=== PATIENT | female | born 1965 | race Caucasian/White ===

== ENCOUNTER 2019-10-29 15:31 | Emergency (ER) | payer BC, SELFPAY ==
--- NOTE | ~2019-10-29 | CT_ITS ---
EXAMINATION: CT abdomen pelvis wo con DATE: 10/29/2019 18:30 INDICATION: Left flank pain TECHNIQUE: Computed tomography (CT) of the abdomen and pelvis was performed without intravenous contr ast. The dose-length product was 841.20 mGy-cm. Automated exposure control and iterative reconstruction technique were employed. COMPARISON: CT dated 02/24/2007 FINDINGS: Lung bases are unremarkable. Heart size normal. No significant pleural or pericardial effus ion. No significant vascular abnormality. No lymphadenopathy. The liver, spleen, pancreas, adrenal glands and right kidney are unremarkable. There is a proximal ri ght ureteral/UVJ stone measuring 4 mm with mild hydronephrosis. Nonobstructive bowel gas pattern. The re are tubal ligation clips. No free air or free fluid. Mild osteoarthritis of the hips. IMPRESSION: 1. 4 mm proximal left ureteral/UPJ stone with mild hydronephrosis. Reviewed, dictated and finalized at location A.
--- NOTE | ~2019-10-29 | XR_ITS ---
XR abdomen/kub 1V 10/29/2019 18:39 Indication: Left flank pain Procedure: KUB Comparison: CT dated 10/29/2019 Findings: There is a 3-4 mm left UPJ stone at the L2 level. Bowel gas pattern nonobstructive. Interva l removal of right internal ureteral stent. There are tubal ligation rings in the pelvis. Impression: 1: Left UPJ stone measuring 3-4 mm. Reviewed, dictated and finalized at location A. Impression: 1: Left UPJ stone measuring 3-4 mm.
[2019-10-29 15:32] VITALS: BP 144/86; PULSE 79; RESP 16; TEMP 36.5; O2SAT 100
[2019-10-29 15:46] LABS: Basophils Absolute Auto 0.1 K/mm3 (0.0-0.1); Basophils Percent Auto 0.8 % (0.2-1.2); Eosinophils Absolute Auto 0.4 K/mm3 (0-0.3); Eosinophils Percent Auto 6.9 % (0-4.4); Hematocrit 43.7 % (37.0-47.0); Hemoglobin 14.4 g/dL (12.0-15.0); Immature Granulocyte Absolute 0.01 K/mm3 (0.00-0.031); Immature Granulocyte Percent A 0.2 % (0-0.5); Lymphocytes Absolute Auto 1.81 K/mm3 (0.9-3.2); Lymphocytes Percent Auto 29.1 % (18.3-44.2); Mean Platelet Volume 9.7 fl (7.4-10.4); Monocytes Absolute Auto 0.6 K/mm3 (0.1-0.6); Monocytes Percent Auto 10.3 % (2.6-8.5); Neutrophils Absolute Auto 3.3 K/mm3 (1.3-6.7); Neutrophils Percent Auto 52.7 % (45.5-73.1); Platelet Count Result 321 k/mm3 (150-375); Red Cell Distribution Width 12.5 % (11.5-14.5); White Blood Count 6.2 K/mm3 (4.5-10.0)
[2019-10-29 15:55] LABS: Blood Urea Nitrogen 14 mg/dL (7-17); Calcium 9.4 mg/dL (8.4-10.2); Carbon Dioxide 26 mmol/L (22-30); Chloride 101 mmol/L (98-107); Estimated CRCL calculation 119 ml/min; Estimated Glomerular Filt Rate > 60; Glucose 198 mg/dL (65-105); Potassium 3.7 mmol/L (3.4-5.0); Sodium 138 mmol/L (137-145)
[2019-10-29 18:00] VITALS: BP 128/84; PULSE 82; RESP 18; TEMP 36.8; O2SAT 99
--- NOTE | 2019-10-29 18:15 | ED.BACK ---
HPI - Back Pain/Injury General Chief Complaint: Urogenital-Female Stated Complaint: flank pain Time Seen by Provider: 10/29/19 17:55 Source: patient Mode of arrival: ambulatory Limitations: no limitations History of Present Illness HPI Narrative: This patient is a 54 year old female who presents for evaluation of possible kidney stone. She states 30 minutes prior to arriving in ER she developed severe left flank pain. She states her pain resolved 30 minutes ago. She had nausea but no vomiting. She also notes her urine is dark. Related Data Home Medications Medication Instructions Recorded Confirmed atorvastatin HS 10/29/19 dulaglutide [Trulicity] mg SUBCUT WEEKLY 10/29/19 hydrochlorothiazide DAILY 10/29/19 metformin mg BID 10/29/19 pioglitazone mg DAILY 10/29/19 Allergies Allergy/AdvReac Type Severity Reaction Status Date / Time No Known Allergies Allergy Verified 10/29/19 18:43 Review of Systems Review of Systems: All systems reviewed & are unremarkable except as noted in HPI and below Constitutional: Constitutional: Denies chills and Denies fever(s) Eyes: Eyes: Denies change in vision and Denies photophobia ENT: Denies dysphagia and Denies sore throat Cardiovascular: Cardiovascular: Denies chest pain and Denies radiating jaw, neck or arm pain Gastrointestinal: Gastrointestinal: Denies constipation, Denies diarrhea, Reports nausea and Denies vomiting Genitourinary: Genitourinary: Reports hematuria and Reports flank pain Musculoskeletal: Musculoskeletal: Denies back pain PMFSH Past Medical History Medical History Diabetes mellitus Hyperlipidemia Hypertension Kidney stones Surgical History Surgical History (Updated 10/29/19 @ 18:16 by Liliana Fowler MD) No significant past surgical history Social History Social History (Updated 10/29/19 @ 18:16 by Liliana Fowler MD) Smoking status: Never smoker Gender identity (if verbalized by the patient): Female Exam Narrative: Exam Narrative: GENERAL: Well-appearing, well-nourished, and in no acute distress. HEAD: Normocephalic, atraumatic EYES: PERRLA and EOMI, conjunctiva clear without discharge THROAT:Mucous membranes moist, Oropharynx normal without erythema, exudate, peritonsillar swelling or fluctuance NECK: Supple, without lymphadenopathy or mass RESPIRATORY: No respiratory distress, Airway patent, Respirations non-labored, Clear to auscultation without rales, rhonchi or wheeze HEART: Regular rate and rhythm. No murmur heard. Normal peripheral pulses. ABDOMEN: Soft, nontender, nondistended, normal active bowel sounds. No masses. No rebound or guarding, No organomegaly. EXTREMITIES: No edema, normal strength with full range of motion. SKIN: Warm, dry, normal color without rash NEURO: Alert and oriented x3. CN 2-12 grossly intact. No focal deficits. PSYCH: Normal mood and affect. Course Reevaluation(s) Reevaluation #1: I discussed case with patient and discharge plan. She is still pain free. Date: 10/29/19 Time: 18:46 Vital Signs Vital signs: Vital Signs Temperature 97.7 F 10/29/19 15:32 Pulse Rate 79 10/29/19 15:32 Respiratory Rate 16 10/29/19 15:32 Blood Pressure 144/86 H 10/29/19 15:32 Pulse Oximetry 100 10/29/19 15:32 Temperature 98.3 F 10/29/19 18:00 Pulse Rate 82 10/29/19 18:00 Respiratory Rate 18 10/29/19 18:00 Blood Pressure 128/84 10/29/19 18:00 Pulse Oximetry 99 10/29/19 18:00 MDM - Back Pain/Injury Lab Data Attestation: I reviewed the patient's lab results. Result diagrams: 10/29/19 15:39 10/29/19 15:39 Labs: Lab Results 10/29/19 10/29/19 10/29/19 Range/Units 15:39 15:39 18:00 WBC 6.2 (4.5-10.0) K/mm3 RBC 4.80 (4.2-5.4) M/mm3 Hgb 14.4 (12.0-15.0) g/dL Hct 43.7 (37.0-47.0) % MCV 91.0 (80-100) fl MCH 30.0 (26-34) pg MCHC
[2019-10-29 18:21] LABS: Add Urine Microscopic? YES; Appearance Urine Clear (Clear); Bilirubin Urine Negative (Negative); Blood Urine 3+ (Negative); Color Urine Yellow (Yellow); Glucose Urine UA 3+ mg/dL (Negative); Ketones Urine Negative (Negative); Leukocyte Esterase Ur Negative LEU/UL (Negative); Mucus Urine Few /lpf; Nitrate Urine Negative (Negative); Protein Urine 1+ mg/dL (Negative); RBC Urine >75 /hpf (0-2); Specific Grav Ur 1.025 (1.001-1.035); Squamous Epithelial Cell Urine Few /hpf (Few); Urobilinogen Urine Negative mg/dL (<2.0)
[2019-10-29] MEDS: TAMSULOSIN HCL 0.4 MG CAPSULE PO (18:48)
== END 2019-10-29 19:01 | disposition home or self-care (01) ==
PROVIDERS: Family Medicine; Emergency Provider General Practice; PCP Family Medicine
DX: N13.2 Hydronephrosis with renal and ureteral calculous obstruction (principal); E11.9 Type 2 diabetes mellitus without complications; E78.5 Hyperlipidemia, unspecified; I10 Essential (primary) hypertension; Z79.84 Long term (current) use of oral hypoglycemic drugs
CPT/HCPCS: 36415; 74018; 74176; 80048; 81001; 81025; 85025; 99284; A9270

== ENCOUNTER 2019-12-15 16:12 | Outpatient (CLI) | payer BC, SELFPAY ==
--- NOTE | ~2019-12-15 | XR_ITS ---
XR abdomen/kub 1V 12/15/2019 16:34 INDICATION: Pelvic pain. History of kidney stones. TECHNIQUE: KUB COMPARISON: 02/24/2007 FINDINGS: Bowel gas pattern is normal. There is no evidence of free air, mass, organomegaly, ascites or obstruction. No abnormal calculi are seen. The bones appear intact. IMPRESSION: 1: No acute abdominal abnormality identified. Reviewed, dictated and finalized at location A.
== END 2019-12-15 16:13 | disposition home or self-care (01) ==
PROVIDERS: PCP Family Medicine; Visit Provider Physician Assistant
DX: N20.0 Calculus of kidney (principal)
CPT/HCPCS: 74018

== ENCOUNTER 2020-05-20 15:30 | Outpatient (RCR) | payer BC, SELFPAY ==
[2020-05-20 12:50] VITALS: BMI 29.8
[2020-05-20 12:52] VITALS: BMI 29.8
== END 2020-08-09 14:36 | disposition home or self-care (01) ==
LOC: ANHDMC 15:30
PROVIDERS: PCP Family Medicine; Visit Provider Family Medicine
DX: E11.65 Type 2 diabetes mellitus with hyperglycemia (principal); Z71.89 Other specified counseling
CPT/HCPCS: G0108

== ENCOUNTER → 2020-11-20 00:50 | Outpatient (CLI) | payer BC, SELFPAY ==
[2020-11-20 18:26] LABS: SARS-CoV-2 RNA PCR Negative
== END ==
PROVIDERS: PCP Family Medicine; Visit Provider Internal Medicine Gastroenterology
DX: Z01.812 Encounter for preprocedural laboratory examination (principal); Z20.822 Contact with and (suspected) exposure to COVID-19
CPT/HCPCS: C9803; U0003; U0005

== ENCOUNTER 2021-04-18 14:02 | Emergency (ER) | payer BC, SELFPAY ==
[2021-04-18 14:33] VITALS: BP 127/86; PULSE 98; RESP 18; TEMP 37.2; O2SAT 97
--- NOTE | 2021-04-18 16:59 | PC.NURSE ---
0443 Pt at intake desk states she is feeling better. She is going to go home and will come back if needed.
== END 2021-04-19 00:21 | disposition left against medical advice (07) ==
LOC: ANHED 17:09
PROVIDERS: PCP Family Medicine
DX: Z53.21 Procedure and treatment not carried out due to patient leaving prior to being seen by health care provider (principal)
CPT/HCPCS: 99199

== ENCOUNTER 2021-04-19 10:39 | Emergency (ER) | payer BC, SELFPAY ==
--- NOTE | ~2021-04-19 | CT_ITS ---
EXAMINATION: CT abdomen pelvis w con INDICATION: Constipation, nausea and vomiting TECHNIQUE: Computed tomographic images of the abdomen and pelvis were obtained after the administrati on of 100 cc of Omnipaque 350 intravenous contrast. The dose-length product (DLP) was 573.48 mGy-cm. Automated exposure control and iterative reconstruction technique were employed. COMPARISON: 10/29/2019 FINDINGS: A stable nodule of the right lower lobe is consistent with old granulomatous disease. The h eart size is normal. The liver, spleen, pancreas, gallbladder, and adrenal glands are normal. The kid neys are unremarkable. No pathologically enlarged abdominal or pelvic lymph nodes are identified. The re is no free intraperitoneal gas or evidence of bowel obstruction. There is a moderate volume of col onic stool. Liquid stool is seen throughout the colon to the level of the mid descending colon. There is mild lumbar spondylosis. IMPRESSION: 1. Constipation Reviewed, dictated and finalized at location F. [employer] IMPRESSION: 1. Constipation
[2021-04-19 10:50] VITALS: BP 126/80; PULSE 93; RESP 19; TEMP 36.6; O2SAT 96
--- NOTE | 2021-04-19 12:07 | ED.ABDPAIN ---
HPI - Abdominal Pain General Chief Complaint: Abdominal Pain Stated Complaint: constipation Time Seen by Provider: 04/19/21 11:48 History of Present Illness HPI narrative: 56-year-old female with diabetes presents to the emergency department for evaluation of constipation with abdominal pain. Patient states on April 12 she began having some constipation. Patient states since that time she has had only had small bowel movements. Patient states she does have some lower abdominal pain and discomfort and does have the urge to use the restroom but states that she does not feel that it is near the exit . Patient reports she has had one episode of emesis yesterday. Patient has been taking various stool softeners over the last 2 days with no significant improvement. Patient states she did have a bowel movement yesterday that was not large. Patient does report that she has had some medication changes including restarting Trulicity Metformin and a water pill. Patient denies any previous abdominal surgical history. Patient denies any significant issues with constipation previously. Related Data Home Medications Medication Instructions Recorded Confirmed atorvastatin 40 mg PO HS 10/29/19 11/22/20 empagliflozin-metformin [Synjardy 1 tablet PO BID 11/22/20 11/22/20 XR] zxaaesbbusba-lvjopwbj-qrbfta 1 tablet PO DAILY 11/22/20 11/22/20 [Multivitamin 50 Plus] Allergies Allergy/AdvReac Type Severity Reaction Status Date / Time No Known Allergies Allergy Verified 11/22/20 08:36 Review of Systems Review of Systems: CONSTITUTIONAL: Denies fever, chills, or sweats. EYES: Denies visual changes, redness, or discharge. ENT: Denies rhinorrhea, congestion, sore throat, or otalgia. CARDIOVASCULAR: Denies chest pain, palpitations, or edema. RESPIRATORY: Denies cough or dyspnea. GASTROINTESTINAL: Does report lower abdominal pain with 1 episode of emesis, constipation GENITOURINARY: Denies dysuria or hematuria. SKIN: Denies rash or itching. MUSCULOSKELETAL: Denies back pain, joint pain, or myalgia. NEUROLOGIC: Denies headache, numbness, or weakness. PSYCHIATRIC: Denies anxiety or depression. [facility] Past Medical History Medical History (Updated 04/19/21 @ 17:10 by Otf Cortés MD) Diabetes mellitus Hyperlipidemia Hypertension Kidney stones Surgical History Surgical History (Updated 10/29/19 @ 18:16 by Liliana Fowler MD) No significant past surgical history Social History Social History (Updated 10/29/19 @ 18:16 by Liliana Fowler MD) Smoking packs per day: 1 Smoking cigarettes per day: 20.0 Years smoked: 20 Smoking pack-years: 20.00 Smoking status: Former smoker Tobacco type: cigarettes Smoking end date: 04/23/01 Gender identity (if verbalized by the patient): Female Spiritual care concerns: No Exam Narrative: APPEARANCE: Well appearing, no pain in distress, well-nourished. Head normocephalic atraumatic. EYES: PERRLA/EOMI, conjunctivae very clear. THROAT: Pharynx clear, no exudate. NECK: Supple. No adenopathy, no masses. RESPIRATORY: Airway patent, respirations nonlabored. Clear to auscultation bilaterally, no rales, rhonchi, wheezing. CARDIOVASCULAR: Regular rate and rhythm without murmurs rubs or gallops. ABDOMINAL: Soft, normal bowel sounds with lower abdominal tenderness to palpation MUSCULOSKELETAl: Moves all extremities. Strength/ROM intact, No edema, No calf tenderness. NEURO: Alert. Cranial nerves II through XII intact. Good gait. Good coordination SKIN: Warm, dry. Normal Color PSYCHIATRIC: Normal affect/mood Course Course Emergency Course: Patient was updated on the plan for labs and imaging. Patient's constipation may be secondary to her medication changes however patient states that constipation is rare for her. Testing is being ordered to rule out any underlying etiologies including ileus or small bowel obstruction. Patient was updated on the results of her labs and imag
[2021-04-19] MEDS: LACTATED RINGERS 1,000 ML 999 ML IV CONT (12:26)
[2021-04-19 12:40] LABS: Basophils Percent Auto 0.6 % (0.2-1.2); Eosinophils Absolute Auto 0.5 K/mm3 (0-0.3); Eosinophils Percent Auto 8.1 % (0-4.4); Hematocrit 43.4 % (37.0-47.0); Hemoglobin 14.5 g/dL (12.0-15.0); Immature Granulocyte Absolute 0.01 K/mm3 (0.00-0.031); Immature Granulocyte Percent A 0.2 % (0-0.5); Lymphocytes Absolute Auto 1.83 K/mm3 (0.9-3.2); Mean Corpuscular HGB Conc 33.4 g/dl (32-36); Mean Corpuscular Hemoglobin 30.3 pg (26-34); Mean Corpuscular Volume 90.8 fl (80-100); Mean Platelet Volume 9.6 fl (7.4-10.4); Monocytes Absolute Auto 0.6 K/mm3 (0.1-0.6); Monocytes Percent Auto 8.9 % (2.6-8.5); Neutrophils Absolute Auto 3.5 K/mm3 (1.3-6.7); Neutrophils Percent Auto 54.2 % (45.5-73.1); Platelet Count Result 333 k/mm3 (150-375); Red Blood Count 4.78 M/mm3 (4.2-5.4); Red Cell Distribution Width 12.4 % (11.5-14.5); White Blood Count 6.5 K/mm3 (4.5-10.0)
[2021-04-19 13:22] LABS: Lactic Acid Reflex 1.8 mmol/L (0.7-2.1)
[2021-04-19 16:33] LABS: Alanine Aminotransferase 27 U/L (4-35); Albumin Level 4.3 g/dL (3.5-5.1); Alkaline Phosphatase 141 U/L (38-126); Anion Gap 8 mmol/L (8-16); Aspartate Amino Transferase 29 U/L (14-36); Bilirubin,Total 0.4 mg/dL (0.2-1.3); Blood Urea Nitrogen 11 mg/dL (7-17); Calcium 9.7 mg/dL (8.4-10.2); Carbon Dioxide 30 mmol/L (22-30); Chloride 102 mmol/L (98-107); Estimated CRCL calculation 116 ml/min; Estimated Glomerular Filt Rate > 60; Glucose 105 mg/dL (65-110); Lipase 121 U/L (23-300); Potassium 4.5 mmol/L (3.4-5.0); Sodium 140 mmol/L (137-145)
[2021-04-19 17:53] VITALS: BP 110/79; PULSE 86; RESP 18; O2SAT 100
== END 2021-04-19 17:54 | disposition home or self-care (01) ==
PROVIDERS: Emergency Provider Emergency Medicine; PCP Family Medicine
DX: K59.00 Constipation, unspecified (principal); E11.9 Type 2 diabetes mellitus without complications; E78.5 Hyperlipidemia, unspecified; I10 Essential (primary) hypertension; Z87.442 Personal history of urinary calculi; Z87.891 Personal history of nicotine dependence
CPT/HCPCS: 36415; 74177; 80053; 83605; 83690; 85025; 96360; 96361; 99284; J7120; Q9967

== ENCOUNTER → 2021-05-09 00:40 | Outpatient (CLI) | payer BC, SELFPAY ==
[2021-05-10 10:58] LABS: SARS-CoV-2 RNA PCR Negative
== END ==
PROVIDERS: PCP Family Medicine; Visit Provider Internal Medicine Gastroenterology
DX: Z01.812 Encounter for preprocedural laboratory examination (principal); Z20.822 Contact with and (suspected) exposure to COVID-19
CPT/HCPCS: C9803; U0003; U0005

== ENCOUNTER 2021-05-12 01:37 | Day surgery (SDC) | payer BC, SELFPAY ==
[2021-05-09 12:06] VITALS: BMI 28.0
[2021-05-12 08:50] VITALS: BP 120/81; PULSE 78; RESP 18; TEMP 36.4; O2SAT 100; BMI 28.0
--- NOTE | 2021-05-12 08:53 | WPDGICN ---
Assessment and Plan Assessment and plan (1) Encounter for screening colonoscopy: Code(s): Z12.11 - Encounter for screening for malignant neoplasm of colon Status: Acute Assessment and Plan: Patient presents today for screening colonoscopy because of her age further recommendations will be given after endoscopy. (2) Constipation: Code(s): K59.00 - Constipation, unspecified Status: Acute Assessment and Plan: Patient has complaints of constipation. She currently takes Metamucil would recommend this be given once a day. Additionally would suggest MiraLax 17g p.o. every day. Although she may ultimately only need this twice a week or so. GI Consult Note Consult date/time: 05/12/21 08:53 HPI: Mala Peter is a 56 year old female Presents for screening colonoscopy. Patient has difficulty with constipation. About 1 month ago patient went to the emergency room with abdominal pain was felt to be constipated. She states that she continues to have difficulties but does not take laxatives on a routine basis. Currently only taking Metamucil intermittently. Her family history is noncontributory. Patient denies any bleeding. She has had no weight loss. She presents today for colonoscopy. Review of Systems Review of Systems: All systems reviewed & are unremarkable except as noted in HPI and below PMFSH Past Medical History Medical History (Updated 05/12/21 @ 08:55 by Cyrus Forrester MD) Diabetes mellitus Hyperlipidemia Hypertension Kidney stones Surgical History Surgical History (Updated 10/29/19 @ 18:16 by Liliana Fowler MD) No significant past surgical history Social History Social History (Updated 10/29/19 @ 18:16 by Liliana Fowler MD) Smoking packs per day: 1.5 Smoking cigarettes per day: 30.0 Years smoked: 20 Smoking pack-years: 30.00 Smoking status: Former smoker Tobacco type: cigarettes Smoking end date: 04/23/01 Alcohol intake: never Substance use: never Substance use type: does not use Living arrangements: with family Gender identity (if verbalized by the patient): Female Spiritual care concerns: No Meds Home Medications and Allergies Home Medications Medication Instructions Recorded Confirmed Type atorvastatin 40 mg PO DAILY 10/29/19 05/12/21 History ujnnthspqmzy-yfqseyzh-ckrrcv 1 tablet PO DAILY 11/22/20 05/12/21 History [Multivitamin 50 Plus] hydrochlorothiazide 12.5 mg PO DAILY 05/09/21 05/12/21 History lisinopril 10 mg PO DAILY 05/09/21 05/12/21 History metformin 1,000 mg PO BID 05/09/21 05/12/21 History psyllium [Metamucil] 1 packet PO TID 05/09/21 05/12/21 History Allergies Allergy/AdvReac Type Severity Reaction Status Date / Time No Known Allergies Allergy Verified 05/12/21 08:49 Exam Narrative: Physical exam reveals patient to be alert. Vital signs stable. HEENT exam is unremarkable. Patient is anicteric. Lungs are clear to auscultation and percussion. Heart is without murmur or extra sounds. Abdominal exam bowel sounds are present soft nontender with no hepatosplenomegaly. Digital external rectal exam unremarkable.
[2021-05-12] MEDS: LACTATED RINGERS 1,000 ML 150 ML IV CONT (09:06)
[2021-05-12 09:09] LABS: Glucose Point of Care 99 mg/dl (65-105)
--- NOTE | 2021-05-12 09:42 | P.PNAN_ITS ---
Anes - Initial Pre Proc Eval Procedure: Operation Date: 05/12/21 10:00 Proposed Procedures p Colonoscopy - Cyrus Forrester MD Date/Time: 05/12/21 09:42 Surgeon: Cyrus Forrester MD Pre Op Diagnosis: abdominal pain, constipation Patient Data Age: 56 Gender: F Height: 1.68 m Weight: 78.7 kg Last Vital Signs Temp 97.5 F L 05/12/21 08:50 Pulse 78 05/12/21 08:50 Resp 18 05/12/21 08:50 BP 120/81 05/12/21 08:50 Pulse Ox 100 05/12/21 08:50 Allergies Allergy/AdvReac Type Severity Reaction Status Date / Time No Known Allergies Allergy Verified 05/12/21 08:49 Home Medications Medication Instructions Recorded Confirmed Type atorvastatin 40 mg PO DAILY 10/29/19 05/12/21 History ptzhlckiesdq-zfhjuvmb-fazsyw 1 tablet PO DAILY 11/22/20 05/12/21 History [Multivitamin 50 Plus] hydrochlorothiazide 12.5 mg PO DAILY 05/09/21 05/12/21 History lisinopril 10 mg PO DAILY 05/09/21 05/12/21 History metformin 1,000 mg PO BID 05/09/21 05/12/21 History psyllium [Metamucil] 1 packet PO TID 05/09/21 05/12/21 History Laboratory Tests 05/12/21 09:05 POC Capillary Glucose 99 mg/dl mg/dl (65-105) Patient hx anesthesia problems: none Family hx anesthesia problems: none Results Review: All pre-operative results and documents have been reviewed as part of the pre-operative evaluation. COUNT INCLUDES THE [facility] Past Medical History Medical History (Updated 05/12/21 @ 08:55 by Cyrus Forrester MD) Diabetes mellitus Hyperlipidemia Hypertension Kidney stones Surgical History Surgical History (Updated 10/29/19 @ 18:16 by Liliana Fowler MD) No significant past surgical history Social History Social History (Updated 10/29/19 @ 18:16 by Liliana Fowler MD) Smoking packs per day: 1.5 Smoking cigarettes per day: 30.0 Years smoked: 20 Smoking pack-years: 30.00 Smoking status: Former smoker Tobacco type: cigarettes Smoking end date: 04/23/01 Alcohol intake: never Substance use: never Substance use type: does not use Living arrangements: with family Gender identity (if verbalized by the patient): Female Spiritual care concerns: No Anes - Eval Final PreProcedure Day of Procedure 05/12/21 09:42 Patient weight: obese Heart: regular rate and rhythm Lungs: clear to auscultation Airway: Mallampati scale class II Neurological: alert and oriented Last oral intake: >/= 8 hours ASA classification: III Emergent: no Anesthetic plan: proceed Anesthesia type and monitoring: general GIVS and standard monitoring Results Review: All pre-operative results and documents have been reviewed as part of the pre-operative evaluation. Informed Consent: The patient's anesthetic plan and its attendant risks and benefits were discussed with the patient/family/POA. Questions were solicited and answers provided to the satisfaction of the patient/family/POA.
[2021-05-12 10:23] VITALS: BP 122/81; PULSE 77; RESP 18; O2SAT 100
[2021-05-12 10:33] VITALS: BP 133/83; PULSE 73; RESP 19; O2SAT 100
[2021-05-12 10:43] VITALS: BP 128/85; PULSE 71; RESP 19; O2SAT 98
== END 2021-05-12 10:57 | disposition home or self-care (01) ==
PROVIDERS: PCP Family Medicine; Visit Provider Internal Medicine Gastroenterology
PROC: 0DJD8ZZ Inspection of Lower Intestinal Tract, Via Natural or Artificial Opening Endoscopic (ICD-10-PCS; CPT 45378; principal; 2021-05-12 10:00)
DX: Z12.11 Encounter for screening for malignant neoplasm of colon (principal); K59.00 Constipation, unspecified; K64.8 Other hemorrhoids; I10 Essential (primary) hypertension; E78.5 Hyperlipidemia, unspecified; E11.9 Type 2 diabetes mellitus without complications; Z79.84 Long term (current) use of oral hypoglycemic drugs; Z87.891 Personal history of nicotine dependence; E66.9 Obesity, unspecified; Z68.28 Body mass index [BMI] 28.0-28.9, adult
CPT/HCPCS: 45378; 82948; J2704; J7120

== ENCOUNTER 2021-08-01 09:46 | Outpatient (CLI) | payer BC, SELFPAY ==
--- NOTE | 2021-08-01 10:25 | ECG_ITS ---
Measurements Intervals Elaine Rate: 82 P: 26 DC: 162 QRS: 12 QRSD: 84 T: 50 QT: 364 QTc: 427 Interpretive Statements SINUS RHYTHM WITH SINUS ARRHYTHMIA NORMAL ECG NO PREVIOUS ECG AVAILABLE FOR COMPARISON Electronically Signed On 08-01-2021 15:38:44 CDT by Nadir Bishop M.D.
[2021-08-01 10:47] LABS: Basophils Percent Auto 0.5 % (0.2-1.2); Eosinophils Absolute Auto 0.4 K/mm3 (0-0.3); Eosinophils Percent Auto 7.2 % (0-4.4); Hematocrit 43.8 % (37.0-47.0); Hemoglobin 14.5 g/dL (12.0-15.0); Immature Granulocyte Absolute 0.02 K/mm3 (0.00-0.031); Immature Granulocyte Percent A 0.4 % (0-0.5); Lymphocytes Absolute Auto 1.51 K/mm3 (0.9-3.2); Lymphocytes Percent Auto 26.6 % (18.3-44.2); Mean Corpuscular HGB Conc 33.1 g/dl (32-36); Mean Corpuscular Hemoglobin 30.6 pg (26-34); Mean Corpuscular Volume 92.4 fl (80-100); Mean Platelet Volume 9.7 fl (7.4-10.4); Monocytes Absolute Auto 0.5 K/mm3 (0.1-0.6); Monocytes Percent Auto 8.1 % (2.6-8.5); Neutrophils Absolute Auto 3.3 K/mm3 (1.3-6.7); Neutrophils Percent Auto 57.2 % (45.5-73.1); Platelet Count Result 293 k/mm3 (150-375); Red Blood Count 4.74 M/mm3 (4.2-5.4); Red Cell Distribution Width 12.3 % (11.5-14.5); White Blood Count 5.7 K/mm3 (4.5-10.0)
[2021-08-01 10:59] LABS: Prothrombin Time 13.2 Seconds (11.1-14.7)
[2021-08-01 11:00] LABS: Alanine Aminotransferase 24 U/L (4-35); Albumin Level 4.4 g/dL (3.5-5.1); Alkaline Phosphatase 150 U/L (38-126); Anion Gap 6 mmol/L (8-16); Aspartate Amino Transferase 23 U/L (14-36); Bilirubin,Total 0.5 mg/dL (0.2-1.3); Blood Urea Nitrogen 15 mg/dL (7-17); Calcium 8.9 mg/dL (8.4-10.2); Carbon Dioxide 25 mmol/L (22-30); Chloride 105 mmol/L (98-107); Estimated Glomerular Filt Rate > 60; Glucose 240 mg/dL (65-110); Potassium 3.9 mmol/L (3.4-5.0); Sodium 136 mmol/L (137-145)
== END 2021-08-01 09:47 | disposition home or self-care (01) ==
LOC: ANHSURGERY 09:50
PROVIDERS: PCP Family Medicine; Visit Provider Urology
DX: Z01.818 Encounter for other preprocedural examination (principal); I10 Essential (primary) hypertension
CPT/HCPCS: 36415; 80053; 85025; 85610; 85730; 87086; 87088; 93005

== ENCOUNTER → 2021-08-12 01:28 | Outpatient (CLI) | payer BC, SELFPAY ==
[2021-08-12 12:03] LABS: SARS-CoV-2 RNA PCR Negative
== END ==
PROVIDERS: PCP Family Medicine; Visit Provider Urology
DX: Z01.812 Encounter for preprocedural laboratory examination (principal); Z20.822 Contact with and (suspected) exposure to COVID-19
CPT/HCPCS: C9803; U0003; U0005

== ENCOUNTER 2021-08-15 01:48 | Day surgery (SDC) | payer BC, SELFPAY ==
[2021-08-01 09:45] VITALS: BP 134/80; PULSE 80; RESP 18; TEMP 37.1; O2SAT 98; BMI 29.2
--- NOTE | 2021-08-01 09:46 | PC.NURSE ---
Addendum entered by Gladys Macias RN 08/01/21 10:29: PT AWARE SURGERY DATE IS 08/15/21 NOT 06/17/21 Original Note: Report to the Outpatient Waiting Room, entrance under the green pavilion located off [facility], at time _0600_ on date _06/17/21_. OR Time: _0730__. - You and your visitor will be asked a series of questions to screen for COVID 19 for your protection. - A mask is required within the hospital. One visitor will be allowed to accompany the patient into the hospital. Patients visitor will be instructed to remain with patient at all times or leave the building. We will allow the visitor to come back to the postoperative area when patient is ready. Preoperative COVID Testing Requirements: COVID TEST 08/12/21 @ 0830 COVID test must be conducted within 72 hours of surgery and patient is asked to isolate self from time of testing until procedure. You will go to the [facility] for your COVID testing. The [facility] site is located at the corner of [address] [facility]. You will only be called if COVID results are positive and your surgeon may reschedule your elective surgery date. Patients may have clear liquids (water, carbonated beverages, clear teas, apple juice) until 3 hours prior to surgery (0430 AM) with a maximum of 20 ounces. - No food from midnight until time of surgery Take the following medications with a SIP of water the morning of surgery: _NONE_ Medications to discontinue per DR. EUCEDA - MULTI VITAMIN 7 DAYS PRIOR TO SURGERY, Date to take last dose 08/07/21_ Please no make-up, nail vietnamese, hairspray, perfume, deodorant, or body powder the day of surgery. No jewelry (including any body piercings) or valuables the day of surgery, leave them at home. Please take a shower or bath the night before, or the morning of, surgery with an antibacterial soap. Wear comfortable, loose fitting clothing. - Jewelry must be removed prior to entering the operating room. Rings and piercings that are not removed may be cut off. - The hospital will not accept responsibility for valuables. - Please leave all valuables, including medications, at home the day of surgery. If you are going home after surgery, a licensed driver material handler must drive you home. - NO public transportation without another adult. - We recommend that an adult stay with you for 24 hours following discharge. - We also recommend that you do not drive, make important decision, drink alcoholic beverages, or take any drugs that were not prescribed by your health care provider for at least 24 hours after your discharge time. Follow any additional instructions given to you from DR. EUCEDA. Instructions given to PT and asked if any additional questions and then verbalized understanding. Patient advised to call surgeon office or pre surgery nurse liaison [phone] if any additional questions.
--- NOTE | 2021-08-10 07:58 | PM.IMHP ---
H&P: HPI History of Present Illness Date/Time: 08/10/21 07:58 56-year-old female admitted for a robotic supracervical hysterectomy and bilateral salpingo-oophorectomy secondary to uterine prolapse. She will undergo sacral colpopexy with Dr. Hampton and proceed as indicated. Risks and benefits reviewed in full Chief Complaint: Pelvic prolapse Review of Systems Review of Systems: All systems reviewed & are unremarkable except as noted in HPI and below PMFSH Past Medical History Medical History Diabetes mellitus Hyperlipidemia Hypertension Kidney stones Surgical History Surgical History No significant past surgical history Social History Social History Smoking packs per day: 1.5 Smoking cigarettes per day: 30.0 Years smoked: 20 Smoking pack-years: 30.00 Smoking status: Former smoker Tobacco type: cigarettes Smoking end date: 04/23/01 Additional smoking assessment comments: STATES QUIT 2001 Alcohol intake: never Substance use: never Substance use type: does not use Gender identity (if verbalized by the patient): Female Spiritual care concerns: No Meds Home Medications and Allergies Home Medications Medication Instructions Recorded Confirmed Type atorvastatin 40 mg PO QAM 10/29/19 08/01/21 History simgvsxwcwed-fsvtfeth-ontmur 1 tablet PO DAILY 11/22/20 08/01/21 History [Multivitamin 50 Plus] lisinopril 10 mg PO DAILY 05/09/21 08/01/21 History metformin 1,000 mg PO BID 05/09/21 08/01/21 History psyllium [Metamucil] 1 packet PO DAILY 05/09/21 08/01/21 History Allergies Allergy/AdvReac Type Severity Reaction Status Date / Time No Known Allergies Allergy Verified 08/01/21 10:03 Exam Const: General: no acute distress Eyes: General: appearance normal, both eyes and all related structures Neck: Neck: supple and no JVD Thyroid: thyroid normal Resp: Effort & Inspection: normal respiratory effort Auscultation: clear to auscultation bilaterally Cardio: Rate: regular rate Rhythm: regular rhythm GI: Inspection: non-distended GI Palp: Yes Soft to palpation, No Tenderness to palpation present (GI) and No Guarding due to palpation present (GI) Auscultation: normal bowel sounds : External Female Exam: normal external appearance Speculum Exam - Vagina: normal appearance of the vagina (Cystocele present with second-degree prolapse) Speculum Exam - Cervix: Cervical os closed Bimanual exam- vagina & uterus: Uterus displaced Bimanual Exam- Adnexa, other: normal adnexae Skin: General skin exam: no rashes or lesions noted Extrem: General: normal to inspection and no edema Psych: Mental Status: mental status grossly normal Affect: normal affect Assessment and Plan Additional Plan Impression: Pelvic prolapse Plan: Robotic supracervical hysterectomy and bilateral salpingo-oophorectomy
--- NOTE | 2021-08-12 09:35 | PM.IMHP ---
H&P: HPI History of Present Illness Date/Time: 08/12/21 09:35 This is a woman with a cystocele and stress incontinence. She has reasonable apical support. I will plan on a vaginal cystocele repair. She also desires a a hysterectomy. Consideration will be given to a uterosacral vault suspension to better preserved apical support at the time of her hysterectomy. Will also perform urethral sling Chief Complaint: Cystocele, stress incontinence Review of Systems Review of Systems: All systems reviewed & are unremarkable except as noted in HPI and below [facility] Past Medical History Medical History (Updated 08/12/21 @ 09:37 by Miki Hampton MD) Diabetes mellitus Hyperlipidemia Hypertension Kidney stones Surgical History Surgical History No significant past surgical history Social History Social History Smoking packs per day: 1.5 Smoking cigarettes per day: 30.0 Years smoked: 20 Smoking pack-years: 30.00 Smoking status: Former smoker Tobacco type: cigarettes Smoking end date: 04/23/01 Additional smoking assessment comments: STATES QUIT 2001 Alcohol intake: never Substance use: never Substance use type: does not use Gender identity (if verbalized by the patient): Female Spiritual care concerns: No Meds Home Medications and Allergies Home Medications Medication Instructions Recorded Confirmed Type atorvastatin 40 mg PO QAM 10/29/19 08/01/21 History mgkrwcaewjtm-agrbgatx-lyklvn 1 tablet PO DAILY 11/22/20 08/01/21 History [Multivitamin 50 Plus] lisinopril 10 mg PO DAILY 05/09/21 08/01/21 History metformin 1,000 mg PO BID 05/09/21 08/01/21 History psyllium [Metamucil] 1 packet PO DAILY 05/09/21 08/01/21 History Allergies Allergy/AdvReac Type Severity Reaction Status Date / Time No Known Allergies Allergy Verified 08/01/21 10:03 Exam Narrative: Alert orient x3 Normal breathing Cystocele to the introitus Minimal loss of apical support Positive urethral mobility Assessment and Plan Assessment and plan (1) Cystocele: Status: Acute Assessment and Plan: Vaginal cystocele repair. Possible uterosacral vault suspension at the time of her hysterectomy. (2) YANET (stress urinary incontinence, female): Code(s): N39.3 - Stress incontinence (female) (male) Status: Acute Assessment and Plan: Urethral sling
--- NOTE | 2021-08-12 12:56 | WPDANESEPPF ---
Anes - Initial Pre Proc Eval Procedure: Operation Date: 08/15/21 07:30 Proposed Procedures p Robotic Uterosacral Vault Suspension, - Miki Hampton MD s Urethral Sling, - Miki Hampton MD s Robotic Assisted Supracervical Hysterectomy with Bilateral Salpingo-oophorectomy - Ari Hernandez MD Date/Time: 08/12/21 12:56 Surgeon: Miki Hampton MD Pre Op Diagnosis: Midline Cystocele, Stress Incontinence Patient Data Age: 56 Gender: F Height: 1.68 m Weight: 82.1 kg Last Vital Signs Temp 98.8 F 08/01/21 09:45 Pulse 80 08/01/21 09:45 Resp 18 08/01/21 09:45 BP 134/80 08/01/21 09:45 Pulse Ox 98 08/01/21 09:45 Allergies Allergy/AdvReac Type Severity Reaction Status Date / Time No Known Allergies Allergy Verified 08/15/21 06:52 Home Medications Medication Instructions Recorded Confirmed Type atorvastatin 40 mg PO QAM 10/29/19 08/15/21 History ymnkwqnlfpqy-aspeadax-mksbtc 1 tablet PO DAILY 11/22/20 08/15/21 History [Multivitamin 50 Plus] lisinopril 10 mg PO DAILY 05/09/21 08/15/21 History metformin 1,000 mg PO BID 05/09/21 08/15/21 History psyllium [Metamucil] 1 packet PO DAILY 05/09/21 08/15/21 History Patient hx anesthesia problems: none Family hx anesthesia problems: none Results Review: All pre-operative results and documents have been reviewed as part of the pre-operative evaluation. [facility] Past Medical History Medical History (Updated 08/12/21 @ 09:37 by Miki Hampton MD) Diabetes mellitus Hyperlipidemia Hypertension Kidney stones Surgical History Surgical History No significant past surgical history Social History Social History Smoking packs per day: 1.5 Smoking cigarettes per day: 30.0 Years smoked: 20 Smoking pack-years: 30.00 Smoking status: Former smoker Tobacco type: cigarettes Smoking end date: 04/23/01 Additional smoking assessment comments: STATES QUIT 2001 Alcohol intake: never Substance use: never Substance use type: does not use Living arrangements: with family Gender identity (if verbalized by the patient): Female Spiritual care concerns: No Anes - Eval Final PreProcedure Day of Procedure 08/12/21 12:56 Patient weight: obese Heart: regular rate and rhythm Lungs: clear to auscultation Airway: Mallampati scale class III Neurological: alert and oriented Last oral intake: >/= 8 hours ASA classification: III Emergent: no Anesthetic plan: proceed Anesthesia type and monitoring: general ETT and standard monitoring Results Review: All pre-operative results and documents have been reviewed as part of the pre-operative evaluation. Informed Consent: The patient's anesthetic plan and its attendant risks and benefits were discussed with the patient/family/POA. Questions were solicited and answers provided to the satisfaction of the patient/family/POA.
--- NOTE | 2021-08-12 13:14 | PCCCNOTE ---
Per Registration Notes, [place] [id number], pre-auth is not on file, Called to Dr. Irene Hernandez's office ([phone]) and left vm message with care team coordinator scheduler requesting follow up and call back.
--- NOTE | 2021-08-12 15:48 | PCCCNOTE ---
Return phone call received from Nona from Dr. Santana's office, she states that she called the insurance twice and both times the CPT code for Hysterectomy procedure was no precert required for 23 hour observation. Nona provides the reference numbers for both of the calls: [id number] and [id number].
[2021-08-15] VITALS (10 sets, daily range): BP systolic 102–155; BP diastolic 61–82; PULSE 52–80; RESP 12–19; TEMP 36.1–36.7; O2SAT 94–100
[2021-08-15] MEDS: ACETAMINOPHEN 500 MG TABLET 1000 MG PO (06:58)
--- NOTE | 2021-08-15 07:02 | WPDHPUPDATE1 ---
History and Physical Update Update Date/Time: 08/15/21 07:02 History and Physical has been reviewed, including an updated exam of the patient. There are NO changes in the patient's condition. Risks, benefits, and alternatives have been discussed and questions answered. Patient agrees to proceed with procedure.
--- NOTE | 2021-08-15 07:12 | WPDHPUPDATE1 ---
History and Physical Update Update Date/Time: 08/15/21 07:12 History and Physical has been reviewed, including an updated exam of the patient. There are NO changes in the patient's condition. Risks, benefits, and alternatives have been discussed and questions answered. Patient agrees to proceed with procedure.
[2021-08-15] MEDS: LACTATED RINGERS 1,000 ML 30 ML IV CONT ×2 (07:17→09:54)
[2021-08-15 07:19] LABS: Glucose Point of Care 164 mg/dl (65-105)
[2021-08-15] MEDS: KETOROLAC 15 MG/ML VIAL (*BKC) IV PUSH (07:20)
[2021-08-15] MEDS: ceFAZolin 2 GM/D5W 50 ML 2 GM/50 ML BAG IVPB (07:30)
[2021-08-15] MEDS: metroNIDAZOLE 500 MG/ISO 100ML 500 MG/100 ML BAG 100 MG IVPB ×2 (07:30→16:11)
--- NOTE | 2021-08-15 08:39 | P.OP_ITS ---
Procedure Note - Detailed Date of Procedure 08/15/21 Pre-op Diagnosis Midline Cystocele, Stress Incontinence Post-op Diagnosis Same Procedure Performed Robotic supracervical hysterectomy bilateral salpingo-oophorectomy Surgeon Ari Hernandez MD Anesthesia General Indications Is a 56-year-old female prolapse mildly enlarged uterus Findings Mildly enlarged uterus tubes status post tubal ligation/with normal-appearing ovaries Description of Procedure The patient is prepped and draped in the normal sterile fashion placed in the dorsal lithotomy position. Under excellent general trach anesthesia weighted s peculum placed in posterior fornix vagina. Anterior lip of the cervix grasped with single-tooth tenaculum the Schneider's cannula inserted attached to the single- tooth to be used later for uterine manipulation. Sixteen Frisian catheter was placed in the bladder to drain clear urine. The weighted speculum was removed and gloves were changed. Dr. Mejia proceeded to dock the robot. Please see his operative report for full details. Once robot had been docked the left round ligament was grasped, burned, cut. Anteriorly a bladder flap was formed by sharply dissecting the peritoneum and reflecting the bladder caudally away from the cervix to the opposite round ligament which was clamped, burned, cut. Next the left infundibulopelvic structure was skeletonized to remove the left ovary and tube clamped, burned, cut and brought to the level of previously cut round ligament. In like fashion removing the right ovary and tube the infundibulopelvic structure was skeletonized. This was clamped, burned, cut and brought to the level of previously cut round ligament. Next the cardinal broad ligaments on the left were serially skeletonized clamping burning and cutting by sharply dissecting and hugging the cervix and uterus until the uterine vessels could be seen on the left. These uterine vessels were then clamped, burned, cut. In like fashion the cardinal broad ligaments on the right were serially skeletonized. Clamped, burned, cut and brought down the lateral edge of the uterus until the uterine vessels could be seen on the right. These were individually clamped, burned, cut. Blanching of the uterus was seen the uterus was then bisected down to the supracervical portion to facilitate removal. A supracervical incision was made using monopolar cautery and the uterus ovaries and tubes were placed into a an Endo-Catch. Dr. Hampton progressed from there. There were no complications up to this point and blood loss was estimated at5cc Estimated Blood Loss 5 Drains No Packing No Pathology Yes Complications No immediate complications Condition Stable Disposition No change
--- NOTE | 2021-08-15 09:53 | P.OP_ITS ---
Procedure Note - Detailed Date of Procedure 08/15/21 Pre-op Diagnosis Midline Cystocele, Stress Incontinence Post-op Diagnosis Same Procedure Performed Robotic uterosacral ligament suspension, urethral sling, cystoscopy Surgeon Miki Hampton MD Anesthesia General Indications This is a woman with a cystocele to the introitus with mild loss of apical support. She also has stress incontinence. She does not have enough apical prolapse to warrant a formal mesh colpopexy. She is here today for the above. She understands risks of bleeding, infection, recurrence of prolapse, persistent or recurrent stress incontinence, vaginal mesh extrusion, urinary tract mesh erosion, obstructive voiding requiring secondary procedure, hip and leg pain, dyspareunia. She agrees to proceed Findings Excellent apical support once a vault suspension was completed. No need for anterior repair. Uncomplicated urethral sling Description of Procedure She was correctly identified. Informed consent obtained. From the operating room. She was given general anesthesia. She was placed in low lithotomy position. She was prepped and draped in a sterile fashion. Time-out performed. I anesthetized the skin 3 fingerbreadths cephalad the umbilicus. I incised the skin. I located the fascia. I opened the fascia sharply. I placed Vicryl sutures for later fascial closure. I placed a midline trocar. There is no sign of any trocar related injury. Under direct vision I placed 2 additional trocars in the right upper quadrant and 2 in left upper quadrant taking great care not to injure underlying organs. She was placed in steep Trendelenburg. The robot was docked. Her application support engineer completed a supracervical hysterectomy. The specimen was placed in a bag which was removed into the surgery. I then sat at the console. I identified both the right and left ureter I used the tenaculum to elevate the cervix towards the 12 o'clock position. The uterosacral ligaments were very easily seen. I did 3 sutures bilaterally suspending the cervix to the high insertion of the uterosacral ligament. Again both ureters were seen and kept lateral to all suture. The sutures were tied down easily suspending the vaginal apex. The specimen was removed. Vicryl sutures were tied down closing the fascia. Skin was closed with Monocryl and glue. She was repositioned and prepped for urethral sling. Examination of the vagina revealed no significant rectocele. No significant cystocele. She had urethral hypermobility. There is no need for vaginal repairs of prolapse. I marked out the inner thigh incisions. I anes thetized the skin and made those incisions. I then anesthetized the anterior vaginal wall over the mid urethra. I made a midline incision of the mid urethra. I dissected out laterally taking great care not to injure through the vaginal wall. I passed helical trocars 1st on the left than on the right from the thigh incision towards the vaginal incision. Sling was connected to the trocars about the thigh incision. I tensioned the sling appropriately. I cut and removed the plastic sheaths. I then closed the incision with 2-0 Vicryl. On cystoscopy she had no tumors, stones, abnormal red patches, foreign bodies. Ureteral orifices were normal. There is seen to excrete clear yellow urine bilaterally. There is no surgical artifact the bladder urethra. I cut the excess sling material. Closed incision with glue. She was awakened transferred to PACU in stable condition. Estimated Blood Loss 20 Packing No Pathology None sent Complications No immediate complications Condition Stable Disposition PACU
[2021-08-15 09:54] LABS: Glucose Point of Care 239 mg/dl (65-105)
[2021-08-15] MEDS: fentaNYL CITRATE INJ (*CRX) 100 MCG/2 ML VIAL 25 MCG IV PUSH ×4 (10:22→10:45)
[2021-08-15] MEDS: diphenhydrAMINE HCl INJ 50 MG/ML VIAL 12.5 MG IV PUSH ×2 (10:50→11:04)
[2021-08-15] MEDS: KCL 20 MEQ/D5/0.45% SOD CHL 1,000 ML 100 ML IV CONT (11:43)
--- NOTE | 2021-08-15 12:06 | OBPPTRN ---
Patient transferred to post room #280 via bed. Support person present. Oriented to unit, room, information board, admission packet and security measures. Patient verbalizes understanding.
[2021-08-15] MEDS: metFORMIN HCL 500 MG TABLET 1000 MG PO ×2 (13:03→19:29)
[2021-08-15] MEDS: ATORVASTATIN 40 MG TABLET PO (13:05)
[2021-08-15] MEDS: PSYLLIUM POWDER PACKET 1 PACKET PO (13:08)
[2021-08-15] MEDS: HYDROcodone/acetaminophen (*CRX) 5-325 MG TABLET 1 TAB PO ×2 (16:20→20:38)
[2021-08-15 16:50] LABS: Glucose Point of Care 199 mg/dl (65-105)
[2021-08-15 20:35] LABS: Glucose Point of Care 192 mg/dl (65-105)
[2021-08-16] MEDS: HYDROcodone/acetaminophen (*CRX) 5-325 MG TABLET 1 TAB PO ×3 (00:11→11:26)
[2021-08-16 00:15] VITALS: BP 109/72; PULSE 85; RESP 16; TEMP 36.4; O2SAT 96
[2021-08-16] MEDS: metroNIDAZOLE 500 MG/ISO 100ML 500 MG/100 ML BAG 100 MG IVPB ×2 (00:46→07:57)
[2021-08-16 05:18] VITALS: BP 117/67; PULSE 82; RESP 16; TEMP 36.5; O2SAT 94
[2021-08-16] MEDS: DOCUSATE SODIUM 100 MG CAPSULE PO (07:17)
[2021-08-16] MEDS: PSYLLIUM POWDER PACKET 1 PACKET PO (07:18)
[2021-08-16] MEDS: metFORMIN HCL 500 MG TABLET 1000 MG PO (07:36)
[2021-08-16 07:40] VITALS: BP 112/70; PULSE 73; RESP 16; TEMP 36.9; O2SAT 97
[2021-08-16 07:43] LABS: Glucose Point of Care 134 mg/dl (65-105)
--- NOTE | 2021-08-16 07:46 | PM.GYNPNOP ---
BELL MAKER - A/P Postoperative Procedures: Procedures Operation Date: 08/15/21 07:30 Actual Procedure Side Surgeon p Robotic Uterosacral Vault Suspension, Miki Hampton MD s Urethral Sling, Miki Hampton MD s Robotic Assisted Supracervical Hysterectomy with Bilateral Salpingo-oophorectomy Bilateral Ari Hernandez MD Time Spent With Patient Time: Total time spent is greater than 50% in coordination of care (as documented) at patient's floor/unit and/or counseling patient: Time with patient: less than 15 minutes BELL MAKER- PN:Subj Post-Op Subjective Date/time seen: 08/16/21 07:46 Subjective: patient reports feeling better, patient has no complaints and patient desires discharge Review of Systems Review of Systems: All systems reviewed & are unremarkable except as noted in HPI and below Exam Const: General: no acute distress Eyes: General: appearance normal, both eyes and all related structures Neck: Neck: supple and no JVD Thyroid: thyroid normal Resp: Effort & Inspection: normal respiratory effort Auscultation: clear to auscultation bilaterally Cardio: Rate: regular rate Rhythm: regular rhythm GI: Inspection: non-distended GI Palp: Yes Soft to palpation, No Tenderness to palpation present (GI) and No Guarding due to palpation present (GI) Auscultation: normal bowel sounds : General: Yes bladder normal to palpation External Female Exam: normal external appearance Speculum Exam - Vagina: normal vaginal discharge and No vaginal bleeding Speculum Exam - Cervix: nontender Bimanual exam- vagina & uterus: bladder normal to palpation and No Cervical tenderness present OB/external & speculum: No vaginal bleeding Skin: General skin exam: no rashes or lesions noted Extrem: General: normal to inspection and no edema Psych: Mental Status: mental status grossly normal Affect: normal affect BELL MAKER - PN: Obj Data Vital Signs Vital Signs: Vital Signs - 24 hr 08/15/21 09:54 08/15/21 10:00 08/15/21 10:15 Temperature Pulse Rate 55 L 52 L 55 L Respiratory Rate 17 12 14 Blood Pressure 155/68 H 126/67 125/81 Pulse Oximetry 97 100 97 08/15/21 10:30 08/15/21 10:45 08/15/21 11:00 Temperature Pulse Rate 59 L 68 56 L Respiratory Rate 19 18 12 Blood Pressure 110/82 121/65 102/61 Pulse Oximetry 97 97 94 08/15/21 11:20 08/15/21 15:35 08/15/21 19:00 Temperature 97 F L 98.1 F 97.6 F Pulse Rate 53 L 73 73 Respiratory Rate 18 16 18 Blood Pressure 123/65 117/74 111/74 Pulse Oximetry 100 98 96 08/16/21 00:15 08/16/21 05:18 Temperature 97.6 F 97.7 F Pulse Rate 85 82 Respiratory Rate 16 16 Blood Pressure 109/72 117/67 Pulse Oximetry 96 94 Intake/Output Intake/Output: Intake & Output 08/13/21 08/14/21 08/15/21 08/16/21 23:59 23:59 23:59 23:59 Intake Total 2940 650 Output Total 2700 1100 Balance 240 -450 Meds/Results Medications: Active Medications Generic Name Dose Route Start Last Admin Trade Name Freq PRN Reason Stop Dose Admin Acetaminophen 650 mg 08/15/21 11:16 Acetaminophen 325 Mg Tablet PO Q4H PRN Mild Pain (1-3) or Fever Hydrocodone Bitart/Acetaminophen 1 tab 08/15/21 11:16 08/16/21 07:16 Hydrocodone/Acetaminophen (*Crx) 5-325 Mg Tablet PO 1 tab Q4H PRN Administration Pain Rated 4-5 Atorvastatin Calcium 40 mg 08/15/21 11:16 08/15/21 13:05 Atorvastatin 40 Mg Tablet PO 40 mg QAM GONZALO Administration Cephalexin HCl 500 mg 08/16/21 13:00 Cephalexin 500 Mg Capsule PO QID GONZALO Dextrose 12.5 gm 08/15/21 11:16 Dextrose 50% 25 Gm/50 Ml Syringe IV PUSH PRN PRN Hypoglycemia Protocol Diphenhydramine HCl 25 mg 08/15/21 11:16 Diphenhydramine Hcl Inj 50 Mg/Ml Vial IV PUSH Q6H PRN Itching Docusate Sodium 100 mg 08/15/21 11:16 08/16/21 07:17 Docusate Sodium 100 Mg Capsule PO 100 mg DAILY GONZALO Administration Enoxaparin Sodium 30 mg 08/16/21 09:00 Enoxaparin 30 Mg/0.3
--- NOTE | 2021-08-16 07:48 | PM.DS ---
DS: Admitting Diagnosis Discharge Date 08/16/2021 Admitting Diagnosis symptomatic cystocele enlarged uterus pelvic pain and prolapse DS: Summary Hospital Course Hospital Course: patient was admitted for robotic supracervical hysterectomy bilateral salpingo-oophorectomy and underwent cystocele and sling with Dr. Hoffman. Hospital course was unremarkable. She remained afebrile. She was up, voiding without difficulty, ambulating, eating regular diet, and generally 5 complaints. Time Spent with Patient Time attestation: Total time spent providing and/or coordinating discharge services: Exam Const: General: no acute distress Eyes: General: appearance normal, both eyes and all related structures Neck: Neck: supple and no JVD Thyroid: thyroid normal Resp: Effort & Inspection: normal respiratory effort Auscultation: clear to auscultation bilaterally Cardio: Rate: regular rate Rhythm: regular rhythm GI: Inspection: non-distended GI Palp: Yes Soft to palpation, No Tenderness to palpation present (GI) and No Guarding due to palpation present (GI) Auscultation: normal bowel sounds : General: Yes bladder normal to palpation External Female Exam: normal external appearance Speculum Exam - Vagina: normal vaginal discharge and No vaginal bleeding Speculum Exam - Cervix: nontender Bimanual exam- vagina & uterus: bladder normal to palpation and No Cervical tenderness present OB/external & speculum: No vaginal bleeding Skin: General skin exam: no rashes or lesions noted Extrem: General: normal to inspection and no edema Psych: Mental Status: mental status grossly normal Affect: normal affect DS: Data Data Completed and Pending Pending studies at discharge: Pending at discharge 08/15/21 09:08 Surgical [PTH] Routine Labs on day of discharge: Labs from last 24 hours 08/16/21 08/15/21 08/15/21 07:35 20:32 16:38 POC Capillary Glucose 134 H 192 H 199 H Blood Type Antibody Screen 08/15/21 08/15/21 09:51 07:06 POC Capillary Glucose 239 H Blood Type O Negative Antibody Screen Negative Discharge Plan Discharge Patient Disposition: Home, Self-Care Discharge Instructions: No lifting >20lb, exercise for 6 weeks No tub bath or pool for 2 weeks no intercourse 6 weeks Stand Alone Forms: General Discharge Instructions Follow-up/Referrals: Miki Hampton MD [Physician] - Ari Verde MD [Physician] - (as scheduled) Discharge Medications: New hydrocodone-acetaminophen 5-325 mg tablet 1 tablet PO Q6H PRN (Reason: pain) Qty: 20 RF: 0 docusate sodium [Colace] 100 mg capsule 100 mg PO BID Qty: 60 RF: 0 Continued atorvastatin 40 mg tablet 40 mg PO QAM RF: 0 Multivitamin 50 Plus Tablet 1 tablet PO DAILY RF: 0 metformin 1,000 mg tablet 1,000 mg PO BID RF: 0 lisinopril 10 mg tablet 10 mg PO DAILY RF: 0 psyllium Packet 1 packet PO DAILY RF: 0
[2021-08-16] MEDS: ATORVASTATIN 40 MG TABLET PO (09:03)
[2021-08-16] MEDS: lisinopriL 10 MG TABLET PO (09:04)
[2021-08-16] MEDS: ENOXAPARIN 30 MG/0.3 ML SYRINGE SUB-Q (09:04)
--- NOTE | 2021-08-16 09:19 | WPDANESPN ---
Anes - Prog Note Post-Op Date/Time: 08/16/21 09:19 Cardiovascular status: normal Respiratory status: normal Airway patency: baseline Mental status: baseline Post-Op hydration status: normal Vital Signs: Last Vital Signs Temp 97.7 F 08/16/21 05:18 Pulse 82 08/16/21 05:18 Resp 16 08/16/21 05:18 BP 117/67 08/16/21 05:18 Pulse Ox 94 08/16/21 05:18 Pain Score (VAS): 0 I/O: Intake & Output 08/15/21 08/16/21 08/16/21 23:59 07:59 15:59 Intake Total 1570 750 Output Total 2700 1250 350 Balance -1130 -500 -350 08/15/21 08/15/21 08/15/21 09:51 16:38 20:32 POC Capillary Glucose 239 H 199 H 192 H 08/16/21 07:35 POC Capillary Glucose 134 H Post-procedural complaints: none Patient Feedback: Patient satisfied with anesthetic care.
== END 2021-08-16 12:25 | disposition home or self-care (01) ==
LOC: ANHSURGERY 08:20 → ANHOB2 11:18
PROVIDERS: Obstetrics & Gynecology; PCP Family Medicine; Visit Provider Urology
PROC: (CPT 57425; principal; 2021-08-15 07:30)
PROC: (CPT 57425; 2021-08-15 07:30)
PROC: 0UT94ZZ Resection of Uterus, Percutaneous Endoscopic Approach (ICD-10-PCS; CPT 57425; 2021-08-15 07:30)
DX: N39.3 Stress incontinence (female) (male) (principal); N81.11 Cystocele, midline; D25.0 Submucous leiomyoma of uterus; D25.1 Intramural leiomyoma of uterus; D25.2 Subserosal leiomyoma of uterus; R10.2 Pelvic and perineal pain; I10 Essential (primary) hypertension; E11.9 Type 2 diabetes mellitus without complications; E78.5 Hyperlipidemia, unspecified; Z87.891 Personal history of nicotine dependence; Z79.84 Long term (current) use of oral hypoglycemic drugs
CPT/HCPCS: 58542; 57425; 57288; S2900 ×2; 36415; 82948; 86850; 86900; 86901; 88307; 99199; A9270; C1771; C9290; J0690; J1100; J1170; J1200; J1650; J1885; J2250; J2370; J2405; J2704; J2710; J3010; J3480; J7030; J7120

== ENCOUNTER 2022-05-15 00:12 | Day surgery (SDC) | payer BC, SELFPAY ==
[2022-04-18 10:12] VITALS: BMI 25.2
[2022-05-15 06:22] VITALS: BP 113/76; PULSE 82; RESP 16; TEMP 36.3; O2SAT 100
[2022-05-15] MEDS: LACTATED RINGERS 1,000 ML 150 ML IV CONT (06:27)
[2022-05-15 06:32] LABS: Glucose Point of Care 113 mg/dl (65-105)
--- NOTE | 2022-05-15 07:20 | WPDANESEPPF ---
Anes - Initial Pre Proc Eval Procedure: Operation Date: 05/15/22 07:30 Proposed Procedures p Esophagogastroduodenoscopy EGD - Cyrus Forrester MD Date/Time: 05/15/22 07:20 Surgeon: Cyrus Forrester MD Pre Op Diagnosis: dysphagia Patient Data Age: 57 Gender: F Height: 1.68 m Weight: 72.9 kg Last Vital Signs Temp 97.4 F L 05/15/22 06:22 Pulse 82 05/15/22 06:22 Resp 16 05/15/22 06:22 BP 113/76 05/15/22 06:22 Pulse Ox 100 05/15/22 06:22 O2 Del Method Room Air 05/15/22 06:22 Allergies Allergy/AdvReac Type Severity Reaction Status Date / Time No Known Allergies Allergy Verified 05/15/22 06:21 Home Medications Medication Instructions Recorded Confirmed Type atorvastatin 40 mg tablet 40 mg PO QAM 10/29/19 05/15/22 History abmcualabyan-yhjrmqeo-zmjycb 1 tablet PO DAILY 11/22/20 05/15/22 History tablet (Multivitamin 50 Plus tablet) metformin 1,000 mg tablet 1,000 mg PO BID 05/09/21 05/15/22 History psyllium 1 packet PO PRN PRN Constipation 05/09/21 05/15/22 History dulaglutide 1.5 mg/0.5 mL 1.5 mg subcut WEEKLY 04/18/22 05/15/22 History subcutaneous pen injector (Trulicity) Laboratory Tests 05/15/22 06:27 POC Capillary Glucose 113 mg/dl H mg/dl (65-105) Patient hx anesthesia problems: none Family hx anesthesia problems: none Results Review: All pre-operative results and documents have been reviewed as part of the pre-operative evaluation. [facility] Past Medical History Medical History (Updated 08/12/21 @ 09:37 by Miki Hampton MD) Diabetes mellitus Hyperlipidemia Hypertension Kidney stones Surgical History Surgical History No significant past surgical history Social History Social History Smoking packs per day: 1.5 Smoking cigarettes per day: 30.0 Years smoked: 20 Smoking pack-years: 30.00 Smoking status: Former smoker Tobacco type: cigarettes Smoking end date: 04/23/01 Additional smoking assessment comments: STATES QUIT 2002 Alcohol intake: never Substance use: never Substance use type: does not use Living arrangements: with family Gender identity (if verbalized by the patient): Female Spiritual care concerns: No Anes - Eval Final PreProcedure Day of Procedure 05/15/22 07:20 Patient weight: overweight Heart: regular rate and rhythm Lungs: clear to auscultation Airway: Mallampati scale class II Neurological: alert and oriented Last oral intake: >/= 8 hours ASA classification: III Emergent: no Anesthetic plan: proceed Anesthesia type and monitoring: general GIVS and standard monitoring Results Review: All pre-operative results and documents have been reviewed as part of the pre-operative evaluation. Informed Consent: The patient's anesthetic plan and its attendant risks and benefits were discussed with the patient/family/POA. Questions were solicited and answers provided to the satisfaction of the patient/family/POA.
--- NOTE | 2022-05-15 07:49 | PM.HPGS ---
History of Present Illness History of Present Illness Consent: Risks, benefits, and alternatives have been discussed and questions answered. Patient agrees to proceed with procedure. Chief complaint: dysphagia Narrative: Mala Peter is a 57 year old female Referred at the request of Alice YI. Patient has a several month history of dysphagia. Food will catch in the throat area. She notices this more with solid foods rather than liquids. Patient denies any heartburn. She denies any weight loss. She has had no bleeding. Her family history is noncontributory. Review of Systems Review of Systems: Review of systems is noncontributory. COUNT INCLUDES THE [facility] Past Medical History Medical History (Updated 05/15/22 @ 07:50 by Cyrus Forrester MD) Diabetes mellitus Hyperlipidemia Hypertension Kidney stones Surgical History Surgical History No significant past surgical history Social History Social History Smoking packs per day: 1.5 Smoking cigarettes per day: 30.0 Years smoked: 20 Smoking pack-years: 30.00 Smoking status: Former smoker Tobacco type: cigarettes Smoking end date: 04/23/01 Additional smoking assessment comments: STATES QUIT 2001 Alcohol intake: never Substance use: never Substance use type: does not use Living arrangements: with family Gender identity (if verbalized by the patient): Female Spiritual care concerns: No Meds Home Medications and Allergies Home Medications Medication Instructions Recorded Confirmed Type atorvastatin 40 mg tablet 40 mg PO QAM 10/29/19 05/15/22 History yfqtycvgqkph-yintzbdb-zwnbtk 1 tablet PO DAILY 11/22/20 05/15/22 History tablet (Multivitamin 50 Plus tablet) metformin 1,000 mg tablet 1,000 mg PO BID 05/09/21 05/15/22 History psyllium 1 packet PO PRN PRN Constipation 05/09/21 05/15/22 History dulaglutide 1.5 mg/0.5 mL 1.5 mg subcut WEEKLY 04/18/22 05/15/22 History subcutaneous pen injector (Trulicity) Allergies Allergy/AdvReac Type Severity Reaction Status Date / Time No Known Allergies Allergy Verified 05/15/22 06:21 Vital Signs Vital Signs - 24 hr 05/15/22 06:22 Temperature 97.4 F L Pulse Rate 82 Respiratory Rate 16 Blood Pressure 113/76 Pulse Oximetry 100 Oxygen Delivery Room Air Exam Narrative: Physical exam reveals patient be alert. Vital signs stable. HEENT exam is unremarkable. Patient is anicteric. Lungs are clear to auscultation and percussion. Heart is without murmur or extra sounds. Abdomen bowel sounds are present soft nontender with no organomegaly. Assessment and Plan Assessment and plan (1) Dysphagia: Code(s): R13.10 - Dysphagia, unspecified Status: Acute Assessment and Plan: patient has difficulty swallowing. She feels food catch in the throat area on swallowing. This happens more with solids more so than liquids. EGD will be performed. Further recommendations may be given after endoscopy.
[2022-05-15 07:52] VITALS: BP 109/75; PULSE 102; RESP 22; O2SAT 98
[2022-05-15 08:02] VITALS: BP 107/78; PULSE 94; RESP 20; O2SAT 100
[2022-05-15 08:12] VITALS: BP 108/78; PULSE 88; RESP 17; O2SAT 100
== END 2022-05-15 08:35 | disposition home or self-care (01) ==
PROVIDERS: PCP Family Medicine; Visit Provider Internal Medicine Gastroenterology
PROC: 0DJ08ZZ Inspection of Upper Intestinal Tract, Via Natural or Artificial Opening Endoscopic (ICD-10-PCS; CPT 43235; principal; 2022-05-15 07:30)
DX: K22.2 Esophageal obstruction (principal); I10 Essential (primary) hypertension; E78.5 Hyperlipidemia, unspecified; E11.9 Type 2 diabetes mellitus without complications; Z87.891 Personal history of nicotine dependence; Z79.899 Other long term (current) drug therapy; Z79.84 Long term (current) use of oral hypoglycemic drugs
CPT/HCPCS: 43450; 43235; 82948; J2704; J7120

== ENCOUNTER 2022-06-23 08:11 | Outpatient (CLI) | payer BC, SELFPAY ==
--- NOTE | ~2022-06-23 | XR_ITS ---
EXAMINATION: XR lg joint inject/asp w image DATE: 06/23/2022 08:55 INDICATION: Left shoulder impingement syndrome. TECHNIQUE: A time-out was performed to verify the patient's name, date of , and procedure to b e performed. The procedure including the risks, benefits, and alternatives was discussed with the pat ient. Risks discussed included bleeding and infection. The patient understood the risks and agreed to proceed. The skin overlying the left glenohumeral joint was prepped and draped in usual sterile fas hion. Anesthetic was administered with 1% lidocaine subcutaneously. A 22 G needle was advanced unde r fluoroscopic guidance into the joint. Subsequently, injectate consisting of 3 mL 1% lidocaine and 1 mL 40 mg/mL Kenalog was instilled. The needle was removed and the entry site was cleaned and dress ed. There were no immediate complications. Fluoroscopy exposure time was 0.1 minutes. The total numb er of images was 1. FINDINGS: Real-time fluoroscopy demonstrates the needle in the left glenohumeral joint. Patient's lona n prior to procedure:2/10. Patient's pain following the procedure: 2/10. IMPRESSION: 1. Fluoroscopy guided left glenohumeral joint injection of local anesthetic and steroid. Reviewed, dictated and finalized at location A. RVISOR LIME
== END 2022-06-23 08:12 | disposition home or self-care (01) ==
PROVIDERS: PCP Family Medicine; Visit Provider Physician Assistant
DX: M75.42 Impingement syndrome of left shoulder (principal)
CPT/HCPCS: 20610; 77002; J3301

== ENCOUNTER 2022-06-27 08:02 | Outpatient (CLI) | payer BC, SELFPAY ==
--- NOTE | ~2022-06-27 | CT_ITS ---
EXAMINATION: CT abdomen pelvis wo con DATE: 06/27/2022 08:32 INDICATION: Pelvic pain. Ventral hernia. Hysterectomy last spring. TECHNIQUE: Computed tomography (CT) of the abdomen and pelvis was performed without intravenous contr ast. Automated exposure control and iterative reconstruction technique were employed. Exam dose: 500 .90 mGy-cm total exam DLP. COMPARISON: 04/19/2021 CT abdomen pelvis FINDINGS: Right fat-containing foramen of Bochdalek hernia. The lung bases are clear of infiltrate or consolidation. Normal heart size. No pericardial or pleural effusion. Liver, gallbladder, bile ducts, spleen, pancreas, pancreatic duct, and adrenal glands appear normal. No renal mass lesion or urinary tract calculus or hydroureteronephrosis is detected. The urinary blad sarah is relatively evacuated, unremarkable. There is mild atherosclerotic calcification of the abdominal aorta. Normal caliber of the abdominal a dioni. No intraperitoneal or retroperitoneal or pelvic mass lesion or adenopathy or ascites. Normal appendix. No bowel obstruction, bowel wall thickening, pneumatosis or intraperitoneal free air . Small fat-containing umbilical hernia. No suspicious osteolytic or osteoblastic lesions are noted. Diffuse idiopathic skeletal hyperostosis of the lower thoracic spine. IMPRESSION: Normal appendix No urinary tract calculus or hydroureteronephrosis Reviewed, dictated and finalized at Location [facility]. Reviewed, dictated and finalized at location L. [employer]PLICATION MANAGER
== END 2022-06-27 08:03 | disposition home or self-care (01) ==
PROVIDERS: PCP Family Medicine; Visit Provider Physician Assistant
DX: K43.9 Ventral hernia without obstruction or gangrene (principal)
CPT/HCPCS: 74176

== ENCOUNTER 2023-02-12 09:07 | Outpatient (CLI) | payer BC, SELFPAY ==
--- NOTE | ~2023-02-12 | XR_ITS ---
EXAM: XR cervical spine min 6V DATE: 02/12/2023 10:00 HISTORY: M54.12Radiculopathy PAIN RT SHOULDER, NUMB RT HAND, NO INJ . COMPARISON: None available. FINDINGS: Craniocervical association and atlantoaxial joint are aligned and demonstrate mild degener ative change. No prevertebral soft tissue swelling. 2 mm anterolisthesis at C5-6 which reduces in ext ension. The remaining vertebral bodies are aligned. Vertebral body heights are maintained. Disc space narrowing at C4-5 and C5-6. Multilevel facet sclerosis and hypertrophy. IMPRESSION: Minimal grade 1 dynamic listhesis at C5-6. Multilevel degenerative disc disease and facet arthropathy. Reviewed, dictated and finalized at location K.
--- NOTE | 2023-02-12 11:00 | NEURO_ITS ---
Impression: # Patient reports numbness of right 1st-3rd digits. # Normal Nerve Conduction Study. # Normal needle/EMG exam. # Clinical correlation recommended. Nerve Conduction Studies Anti Sensory Summary Table Stim Site NR Peak (ms) P-T Amp (?V) Site1 Site2 Delta-P (ms) Dist (cm) Gianfranco (m/s) Left Median Anti Sensory (2-3nd Digit) Wrist 3.6 63.3 Wrist 2-3nd Digit 3.6 14.0 39 Wrist 3.5 45.5 Wrist 2-3nd Digit 3.6 14.0 39 Right Median Anti Sensory (2-3nd Digit) Wrist 3.8 51.8 Wrist 2-3nd Digit 3.8 14.0 37 Wrist 3.8 58.7 Wrist 2-3nd Digit 3.8 14.0 37 Left Radial Anti Sensory (Base 1st Digit) Wrist 1.7 40.1 Wrist Base 1st Digit 1.7 0.0 Right Radial Anti Sensory (Base 1st Digit) Wrist 2.0 43.1 Wrist Base 1st Digit 2.0 0.0 Left Ulnar Anti Sensory (5th Digit) Wrist 2.9 19.6 Wrist 5th Digit 2.9 14.0 48 Right Ulnar Anti Sensory (5th Digit) Wrist 3.2 54.9 Wrist 5th Digit 3.2 14.0 44 Motor Summary Table Stim Site NR Onset (ms) O-P Amp (mV) Site1 Site2 Delta-0 (ms) Dist (cm) Gianfranco (m/s) Left Median Motor (Abd Poll Brev) Wrist 3.0 7.3 Elbow Wrist 4.2 23.0 55 Elbow 7.2 6.1 Right Median Motor (Abd Poll Brev) Wrist 3.5 6.2 Elbow Wrist 4.3 23.0 53 Elbow 7.8 5.0 Left Ulnar Motor (Abd Dig Minimi) Wrist 2.8 5.7 A Elbow Wrist 5.6 31.0 55 A Elbow 8.4 4.8 B Elbow Wrist 3.7 21.0 57 B Elbow 6.5 5.6 Right Ulnar Motor (Abd Dig Minimi) Wrist 2.5 6.9 A Elbow Wrist 5.5 31.0 56 A Elbow 8.0 5.4 B Elbow Wrist 3.8 21.0 55 B Elbow 6.3 5.6 F Wave Studies NR F-Lat (ms) L-R F-Lat (ms) Left Median (Mrkrs) (Abd Poll Brev) 28.27 0.09 Right Median (Mrkrs) (Abd Poll Brev) 28.36 0.09 Left Ulnar (Mrkrs) (Abd Dig Min) 28.83 0.10 Right Ulnar (Mrkrs) (Abd Dig Min) 28.73 0.10 EMG Side Muscle Nerve Root Ins Act Fibs Amp Dur Recrt Comment Right 1stDorInt Ulnar C8-T1 Nml Nml Nml Nml Nml Right Ext Indicis Radial (Post Int) C7-8 Nml Nml Nml Nml Nml Right Ext Digitorum Radial (Post Int) C7-8 Nml Nml Nml Nml Nml Right BrachioRad Radial C5-6 Nml Nml Nml Nml Nml Right PronatorTeres Median C6-7 Nml Nml Nml Nml Nml Right Abd Poll Brev Median C8-T1 Nml Nml Nml Nml Nml Left 1stDorInt Ulnar C8-T1 Nml Nml Nml Nml Nml Left Ext Indicis Radial (Post Int) C7-8 Nml Nml Nml Nml Nml Left Ext Digitorum Radial (Post Int) C7-8 Nml Nml Nml Nml Nml Left BrachioRad Radial C5-6 Nml Nml Nml Nml Nml Left PronatorTeres Median C6-7 Nml Nml Nml Nml Nml Left Abd Poll Brev Median C8-T1 Nml Nml Nml Nml Nml MTDD
== END 2023-02-12 09:08 | disposition home or self-care (01) ==
PROVIDERS: PCP Family Medicine; Visit Provider Family Medicine
DX: M43.16 Spondylolisthesis, lumbar region (principal); M51.36 Other intervertebral disc degeneration, lumbar region; M47.896 Other spondylosis, lumbar region
CPT/HCPCS: 72052; 95886; 95911

== ENCOUNTER 2023-05-12 07:15 | Emergency (ER) | payer SELFPAY ==
[2023-05-12 07:16] VITALS: BP 135/73; PULSE 83; RESP 18; TEMP 36.6; O2SAT 100
--- NOTE | 2023-05-12 08:13 | ED.SKABFB ---
HPI - Skin/Abscess/Foreign Bdy General Chief complaint: Skin/Abscess/Foreign Body Stated complaint: hives Time Seen by Provider: 05/12/23 07:31 History of Present Illness HPI narrative: Patient states she noticed some itchy rash to her abdominal wall that goes to her thighs; no recent detergent, soap, new clothing or foods or medications. Very itchy, seems to be better with oatmeal / cream. Related Data Home Medications Medication Instructions Recorded Confirmed atorvastatin 40 mg tablet 40 mg PO QAM 10/29/19 07/03/22 metformin 1,000 mg tablet 1,000 mg PO BID 05/09/21 07/03/22 Allergies Allergy/AdvReac Type Severity Reaction Status Date / Time No Known Allergies Allergy Verified 01/16/23 17:51 Review of Systems Review of Systems: CONST: No fever. HEENT: No sore throat C/V: No chest pain RESP: No cough GI: No abdominal pain : No dysuria. M/S: No joint pain. SKIN: Itchy rash NEURO: [No headache or focal numbness or weakness] PSYCH: [No depression] [facility] Past Medical History Medical History (Updated 05/12/23 @ 08:03 by Sarah Suresh MD) Blindness left eye from Diabetes mellitus GERD (gastroesophageal reflux disease) Hyperlipidemia Hypertension Kidney stones Stress incontinence Surgical History Surgical History History of hysterectomy Hx of tubal ligation 10/1994 S/P ISMAEL-BSO and uretheral sling 08/15/2021 Family History Family History Father Dementia Mother Cancer Social History Social History Smoking packs per day: 1.5 Smoking cigarettes per day: 30.0 Years smoked: 20 Smoking pack-years: 30.00 Smoking status: Former smoker Tobacco type: cigarettes Smoking end date: 04/23/01 Additional smoking assessment comments: STATES QUIT 2001 Alcohol intake: never Substance use: never Substance use type: does not use Lack of Transportation: No Lack of Food: Never True Current Housing: I Have Housing Concerned About Future Housing: No Difficulty Paying Gas/Electric Bills: No Difficulty Paying for Meds: No Currently Unemployed: No Difficulty w/ Childcare or Family Care: No Living arrangements: with family Occupation/Education: occupation Gender identity (if verbalized by the patient): Female Sexual Orientation (if Verbalized by the Patient): Straight or Heterosexual Spiritual care concerns: No Exam Narrative: EXAMINATION OF ORGAN SYSTEMS/BODY AREAS: Constitutional: Vital signs per nursing GENERAL:[No acute distress, non-toxic appearing.] HEAD: Normal with no signs of head trauma. EYES: EOMI, conjunctiva normal ENT: Hearing grossly intact LUNGS: Nonlabored breathing. HEART: [Regular rate and rhythm] ABD: [Soft], [nontender to palpation] EXT: Normal range of motion SKIN: Pinkish rash, excoriated, over waistline, down to groin. Not tender or indurated. Not beefy red. NEURO: [Alert and oriented x 3. No gross focal sensory or strength deficits.] PSYCH: Normal affect Course Vital Signs Vital signs: Vital Signs Temperature 97.8 F 05/12/23 07:16 Pulse Rate 83 05/12/23 07:16 Respiratory Rate 18 05/12/23 07:16 Blood Pressure 135/73 05/12/23 07:16 Pulse Oximetry 100 05/12/23 07:16 Oxygen Delivery Room Air 05/12/23 07:16 Temperature 97.8 F 05/12/23 07:16 Pulse Rate 83 05/12/23 07:16 Respiratory Rate 18 05/12/23 07:16 Blood Pressure 135/73 05/12/23 07:16 Pulse Oximetry 100 05/12/23 07:16 Oxygen Delivery Room Air 05/12/23 07:16 MDM - Skin/Abscess/Foreign Bdy MDM Narrative Medical decision making narrative: patient presenting with extremely itchy rash across her waistline and around the groin, on exam there is excoriation, no tenderness and not indurated, does appear consistent with l
== END 2023-05-12 08:11 | disposition home or self-care (01) ==
PROVIDERS: Emergency Provider Emergency Medicine; PCP Family Medicine
DX: L29.9 Pruritus, unspecified (principal); E11.9 Type 2 diabetes mellitus without complications; I10 Essential (primary) hypertension; E78.5 Hyperlipidemia, unspecified; K21.9 Gastro-esophageal reflux disease without esophagitis; N39.3 Stress incontinence (female) (male); Z87.442 Personal history of urinary calculi; Z87.891 Personal history of nicotine dependence; Z90.710 Acquired absence of both cervix and uterus; Z90.722 Acquired absence of ovaries, bilateral; Z90.79 Acquired absence of other genital organ(s); Z79.85 Long-term (current) use of injectable non-insulin antidiabetic drugs; Z79.84 Long term (current) use of oral hypoglycemic drugs
CPT/HCPCS: 99283

== ENCOUNTER 2024-10-20 09:44 | Outpatient (CLI) | payer BC, SELFPAY ==
--- NOTE | 2024-10-20 11:00 | NEURO_ITS ---
Impression: # Complains of numbness in Right hand ? # No Carpal Tunnel Syndrome? # Right Ulnar Neuropathy around the elbow ? # Normal Needle/EMG exam Nerve Conduction Studies ?Stim Site NR Peak (ms) P-T Amp (?V) Site1 Site2 Delta-P (ms) Dist (cm) Gianfranco (m/s) Right Median Anti Sensory (2-3nd Digit) Wrist ? 3.5 58.3 Wrist 2-3nd Digit 3.5 14.0 40 Wrist ? 3.3 81.7 Wrist 2-3nd Digit 3.5 14.0 40 Right Radial Anti Sensory (Base 1st Digit) Wrist ? 2.0 6.1 Wrist Base 1st Digit 2.0 0.0 Right Ulnar Anti Sensory (5th Digit) Wrist ? 2.6 53.2 Wrist 5th Digit 2.6 14.0 54 ?Stim Site NR Onset (ms) O-P Amp (mV) Site1 Site2 Delta-0 (ms) Dist (cm) Gianfranco (m/s) Right Median Motor (Abd Poll Brev) Wrist ? 3.8 2.9 Elbow Wrist 4.9 30.0 61 Elbow ? 8.7 5.3 Right Ulnar Motor (Abd Dig Minimi) Wrist ? 2.1 5.5 A Elbow Wrist 7.0 30.0 43 A Elbow ? 9.1 4.7 B Elbow Wrist 5.3 23.0 43 B Elbow ? 7.4 4.1 Electromyography ?Side Muscle Nerve Root Ins Act Fibs Amp Dur Recrt Comment Right 1stDorInt Ulnar C8-T1 Nml Nml Nml Nml Nml Right Ext Indicis Radial (Post Int) C7-8 Nml Nml Nml Nml Nml Right Ext Digitorum Radial (Post Int) C7-8 Nml Nml Nml Nml Nml Right BrachioRad Radial C5-6 Nml Nml Nml Nml Nml Right PronatorTeres Median C6-7 Nml Nml Nml Nml Nml Right Abd Poll Brev Median C8-T1 Nml Nml Nml Nml Nml Right ABD Dig Min Ulnar C8-T1 Nml Nml Nml Nml Nml Right FlexPolLong Median (Ant Int) C7-8 Nml Nml Nml Nml Nml Right Abd Poll Long Radial (Post Int) C7-8 Nml Nml Nml Nml Nml
== END 2024-10-20 09:45 | disposition home or self-care (01) ==
PROVIDERS: PCP Family Medicine; Visit Provider Plastic Surgery
DX: G56.21 Lesion of ulnar nerve, right upper limb (principal)
CPT/HCPCS: 95886; 95909